=== PATIENT | female | born 1945 | race Caucasian/White ===

== ENCOUNTER 2019-01-17 13:33 | Observation (INO) | payer MEDICARE ==
[2019-01-17] MEDS ORDERED: ASPIRIN 81 MG PO STA (13:48)
--- NOTE | 2019-01-17 14:10 | ED ---
Chest Pain HPI - General Chief Complaint: Chest Pain Stated Complaint: Chest pain Time Seen by Provider: 01/17/19 13:48 Source: patient Mode of arrival: ambulatory Limitations: no limitations - History of Present Illness Initial Comments: 73-year-old female with history of hypothyroidism presenting today for chief complaint of heavy chest sensation occasional left arm pain and occasional mid back pain for the past 2-3 weeks. Patient states that she has had a sensation of heavy chest with shortness of breath accompanied by occasional left arm pain that is sharp as well as a mid back pain. The arm pain and mid back pain is a stabbing sensation. She denies any specific pattern to denies increasing ambulation. Patient states that she did notice just prior to the onset of the symptoms that she had some swelling of the left leg after line dancing. Patient states that she was concerned because of her friends have had a blood clot that she possibly had developed one in her left leg. Patient is a lifetime nonsmoker. Denies diabetes hypertension dyslipidemia. Patient states she had laboratory studies drawn at her primary care provider's office approximately 2 weeks ago. She states she did not mention this complaint at that time. Patient states she feels as though every time she mind and says she has shortness of breath is increased from her baseline. Patient denies dizziness, vomiting ,abdominal pain, nausea, hemoptysis, hx of cancer, recent surgeries/immobilization or fractures. Patient denies history of DVT/PE. Patient states she felt the heavy chest sensation today, but feels "fine" right now. No other complaints or concerns at this time. Upon arrival patient VS within acceptable limits. Patient appears well, no distress. - Related Data Home Medications Medication Instructions Recorded Confirmed Levothyroxine Sodium [Synthroid] 88 mcg PO DAILY 02/19/16 01/17/19 Cholecalciferol (Vitamin D3) 2,000 unit PO DAILY 01/17/19 01/17/19 [Vitamin D3] L.acidoph,Paracasei, B.lactis 1 cap PO DAILY 01/17/19 01/17/19 [Probiotic] Allergies Allergy/AdvReac Type Severity Reaction Status Date / Time No Known Allergies Allergy Verified 01/17/19 16:22 Review of Systems ROS Statement: Those systems with pertinent positive or pertinent negative responses have been documented in the HPI. ROS Other: All systems not noted in ROS Statement are negative. Past Medical History Past Medical History: Thyroid Disorder History of Any Multi-Drug Resistant Organisms: None Reported Past Surgical History: Orthopedic Surgery Past Psychological History: No Psychological Hx Reported Smoking Status: Never smoker Past Alcohol Use History: Occasional Past Drug Use History: None Reported General Exam - General Exam Comments Initial Comments: General: The patient is awake and alert, in no distress, and does not appear acutely ill. Eye: +3 mm pupils are equal, round and reactive to light, extra-ocular movemen ts are intact. No nystagmus. There is normal conjunctiva bilaterally. No signs of icterus. Ears, nose, mouth and throat: There are moist mucous membranes and no oral les ions. Neck: The neck is supple, there is no tenderness or JVD. Cardiovascular: There is a regular rate and rhythm. No murmur, rub or gallop is appreciated. Respiratory: Lungs are clear to auscultation, respirations are non-labored, breath sounds are equal. No wheezes, stridor, rales, or rhonchi. Gastrointestinal: Soft, non-distended, non-tender abdomen without masses or organomegaly noted. There is no rebound or guarding present. Musculoskeletal: Normal ROM, no tenderness. Strength 5/5. Sensation intact. Radial and DP pulses equal bilaterally 2+. Neurological: A&O x 3. CN II-XII intact, There are no obvious motor or sensory deficits. Coordination appears grossly intact. Speech is normal. Skin: Skin is warm and dry and no rashes or lesions are noted. No LE edema. Psychiatric: Cooperative, appropriate mood & affect, normal judgment. Limitations: no limitations Course Vital Signs 01/17/19 01/17/19 01/17/19 13:41 17:38 17:56 Temperature 97.9 F 97.9 F Pulse Rate 64 57 L 57 L Respiratory 18 18 18 Rate Blood Pressure 167/85 126/78 126/78 O2 Sat by Pulse 98 97 97 Oximetry Chest Pain MDM - MDM 73-year-old female presenting for 1 month of chest pressure left arm pain and occasional mid back pain. Patient denies any specific alleviating or aggravating factors. Patient has no history of diabetes hypertension no known coronary artery disease or hyperlipidemia. Patient is a lifelong nonsmoker. Patient states she has noticed increasing shortness of breath and noted some left leg swelling about tooth 3 weeks ago. States has resolved. No noted swelling on examination. Normal peripheral pulse examination. Negative Homans no pain to palpation of the posterior calves. Patient's lungs are clear. No concerning murmur. Patient vital signs stable. Chest x-ray revealed no acute findings. Troponin negative. EKG sinus bradycardia. CTA was obtained given history of leg swelling with SOB/CP. No PE, no noted aneursyms of the aorta. Patient will be admitted given advanced age for cardiology consultation and serial troponins as patient was experiencing chest pressure today. Patient is agreeable with plan. Patient continues to appears well. Patient transferred to floor appearing well. All questions answered to the best of my ability. Dr. Lombardo spoke with admitting provider. He is agreeable with care plan. Disposition Clinical Impression: Chest pressure, Left arm pain, Shortness of breath Disposition: ADMITTED IP TO THIS [facility] Condition: Stable Is patient prescribed a controlled substance at d/c from ED?: No Time of Disposition: 16:37 Decision to Admit Reason: Admit from EC Decision Date: 01/17/19 Decision Time: 16:37
--- NOTE | 2019-01-17 14:52 | XR ---
EXAMINATION TYPE: XR chest 2V DATE OF EXAM: 01/17/2019 COMPARISON: NONE HISTORY: Shortness of breath and chest heaviness TECHNIQUE: Frontal and lateral views of the chest are obtained. FINDINGS: There is no focal air space opacity, pleural effusion, or pneumothorax seen. Pulmonary hyp erinflation of COPD is seen. The cardiac silhouette size is within normal limits. The osseous struc tures are intact. IMPRESSION: No acute cardiopulmonary process.
[2019-01-17 15:16] LABS: Basophils # (A) 0.1 k/uL (0-0.2); Basophils % (A) 1 %; Eosinophils # (A) 0.2 k/uL (0-0.7); Eosinophils % (A) 3 %; HCT 41.7 % (34.0-46.0); HGB 13.7 gm/dL (11.4-16.0); Lymphocytes # (A) 2.3 k/uL (1.0-4.8); Lymphocytes % (A) 39 %; MCH 31.6 pg (25.0-35.0); MCHC 32.9 g/dL (31.0-37.0); MCV 95.9 fL (80.0-100.0); Mean Platelet Volume 8.4; Monocytes # (A) 0.4 k/uL (0-1.0); Monocytes % (A) 7 %; Neutrophils # (A) 2.8 k/uL (1.3-7.7); Neutrophils % (A) 48 %; Platelet Count 177 k/uL (150-450); RBC 4.35 m/uL (3.80-5.40); RDW 14.1 % (11.5-15.5); WBC 5.8 k/uL (3.8-10.6)
[2019-01-17 15:19] LABS: Appearance,Urine Clear (Clear); Bilirubin,Urine Negative (Negative); Blood,Urine Trace (Negative); Color,Urine Yellow; Glucose,Urine (UA) Negative (Negative); Hyaline Casts,Urine 1 /lpf (0-2); Ketones,Urine Negative (Negative); Leukocyte Esterase,Urine Negative (Negative); Mucus,Urine Rare /hpf; Nitrite,Urine Negative (Negative); PH, Urine 5.5 (5.0-8.0); Protein,Urine Negative (Negative); RBC,Urine 2 /hpf (0-5); Specific Gravity,Urine 1.014 (1.001-1.035); Squamous Epithelial Cell,Urine 1 /hpf (0-4); Urobilinogen,Urine <2.0 mg/dL (<2.0)
[2019-01-17 15:27] LABS: ALT 18 U/L (9-52); AST 21 U/L (14-36); African American GFR (CKD) >90 (>60 ml/min/1.73 sqM); Albumin 4.1 g/dL (3.5-5.0); Alkaline Phosphatase 95 U/L (38-126); Anion Gap 9 mmol/L; Blood Urea Nitrogen 14 mg/dL (7-17); Calcium 9.4 mg/dL (8.4-10.2); Carbon Dioxide 24 mmol/L (22-30); Chloride 103 mmol/L (98-107); Glucose 92 mg/dL (74-99); INR 0.9 (<1.2); Magnesium 2.2 mg/dL (1.6-2.3); Partial Thromboplastin Time 24.7 sec (22.0-30.0); Potassium 4.1 mmol/L (3.5-5.1); Prothrombin Time 9.8 sec (9.0-12.0); Sodium 136 mmol/L (137-145); Total Bilirubin 1.1 mg/dL (0.2-1.3); Total Protein 6.9 g/dL (6.3-8.2)
--- NOTE | 2019-01-17 16:26 | CT ---
EXAMINATION TYPE: CT angio chest DATE OF EXAM: 01/17/2019 4:16 PM COMPARISON: Chest x-ray dated 01/27/2019 HISTORY: SOB, chest pain CT DLP: 249.7 mGycm Automated exposure control for dose reduction was used. CONTRAST: CTA scan of the thorax is performed with IV Contrast, patient injected with 70 mL of Isovue 370, pulm onary embolism protocol. . FINDINGS: LUNGS: Scattered areas of scarring/atelectasis in the lung bases and lateral right lower lobe. There is no concerning parenchymal mass or nodule identified. There is no pleural effusion or pneumothora x seen. The tracheobronchial tree is patent. MEDIASTINUM: There is satisfactory enhancement of the pulmonary artery and its branches, there is no CT evidence for pulmonary embolism. There are no greater than 1 cm hilar or mediastinal lymph nodes. No pericardial effusion is seen. OTHER: No additional significant abnormality is seen. IMPRESSION: NO EVIDENCE OF PULMONARY EMBOLISM.
[2019-01-17] MEDS ORDERED: NITROGLYCERIN SL TABS 0.4 MG TAB SUBLINGUAL PRN (16:35)
[2019-01-18 03:20] LABS: Cholesterol 176 mg/dL (<200); HDL Cholesterol 71 mg/dL (40-60); LDL Cholesterol,Calculated 96 mg/dL (0-99); Triglycerides 47 mg/dL (<150)
[2019-01-18] MEDS ORDERED: LEVOTHYROXINE 88 MCG TAB PO SCH (06:30)
[2019-01-18] MEDS ORDERED: ASPIRIN 325 MG TAB PO SCH (09:00)
[2019-01-18] MEDS ORDERED: CHOLECALCIFEROL 1,000 UNIT TAB PO SCH (09:00)
[2019-01-18] MEDS ORDERED: LACTOBACILLUS ACIDOPH & BULGAR 1 EACH PACKET PO SCH (09:00)
[2019-01-18 09:42] VITALS: RESP 14
--- NOTE | 2019-01-18 10:28 | P.CRDCN ---
History of Present Illness History of present illness: This is Yady Flower PA-C dictating a consult on this patient The patient was interviewed and examined by me as well as by Dr. Campbell Case discussed with Dr. Campbell and he agrees with the plan of care IMPRESSION / ASSESSMENT: Atypical chest discomfort, troponins negative, EKG shows no ST or T-wave abnormalities History of hypothyroidism PLAN: 2-D echo and Doppler studies to assess cardiac structure and function If echo is normal she may go home from his cardiac standpoint and follow-up outpatient for further workup within 1-2 weeks Check TSH HPI Patient is a 73-year-old female with a past medical history of hypothyroidism who presented with complaints of chest discomfort and back pain. Patient states it started with leg pain and swelling about a month ago after dancing. This progressed intermittent back pain. She also had chest heaviness which she describes as a "fullness sensation" accompanied with intermittent left arm tightness/discomfort. She has felt tightness in her throat and her minimally as well. She has also been more short of breath and fatigued over the last month. She has been short of breath with activities that would typically make her short of breath such as line dancing. She does note that shortness of breath and chest discomfort gets better when she leans forward and worse when she lays on her back. Denied dizziness, lightheadedness, palpitations or syncope. Her symptoms have gotten progressively worse so she decided to come in for evaluation. Upon admission her blood pressure was 167/85, pulse was 64. EKG showed sinus mechanism with no ST or T-wave abnormalities. Troponins negative 3. Her chest x-ray showed no acute cardiopulmonary process and her chest CT was negative for pulmonary embolism. Patient seen and examined resting in bed. States she is feeling a little better. Still complaining of upper back pain. She denies history of hypertension, diabetes, heart disease She has a lifelong nonsmoker, drinks 2 glasses of wine a day Denies known family history of heart disease ROS: No fevers, positive for chills no cough, phlegm or expectoration, no nausea, vomiting or diarrhea, no hematuria, dysuria, Positive for back pain no strokes or seizures, no skin lesions. EXAMINATION: Temperature 97.8F, pulse 54, respirations 16, blood pressure 130/76, oxygen saturation 98% on room air Patient seen and examined resting in bed, in no acute distress Lungs clear to auscultation bilaterally, no wheezing, rhonchi or crackles appreciated Heart is regular, normal S1-S2, no murmurs appreciated No tenderness to palpation in the anterior chest or back No elevated JVD noted No carotid bruits No lower extremity edema Abdomen soft nontender REVIEW OF LABS, ECG & MEDICAL DATA CBC 5.8, hemoglobin 13.7, platelets 177, potassium 4.1, BUN 14, creatinine 0.74, magnesium 2.2 Troponin negative 3 Total cholesterol 176, triglycerides 47, LDL 96, HDL 71 Chest x-berenice shows no acute cardiopulmonary process Chest CT shows no evidence of pulmonary embolism EKG showed sinus mechanism with no ST or T-wave abnormalities Past Medical History Past Medical History: Thyroid Disorder History of Any Multi-Drug Resistant Organisms: None Reported Past Surgical History: Orthopedic Surgery Additional Past Surgical History / Comment(s): PLATE IN RIGHT FOOT AND RIGHT ANKLE FRACTURE WITH PLATE. Past Psychological History: No Psychological Hx Reported Smoking Status: Never smoker Past Alcohol Use History: Occasional Past Drug Use History: None Reported Medications and Allergies Home Medications Medication Instructions Recorded Confirmed Type Levothyroxine Sodium [Synthroid] 88 mcg PO DAILY 02/19/16 01/17/19 History Cholecalciferol (Vitamin D3) 2,000 unit PO DAILY 01/17/19 01/17/19 History [Vitamin D3] L.acidoph,Paracasei, B.lactis 1 cap PO DAILY 01/17/19 01/17/19 History [Probiotic] Allergies Allergy/AdvReac Type Severity Reaction Status Date / Time No Known Allergies Allergy Verified 01/17/19 16:22 Physical Exam Vitals: Vital Signs Temp Pulse Pulse Resp BP BP Pulse Ox 01/18/19 04:00 54 L 16 01/18/19 03:30 97.8 F 54 L 16 138/76 98 01/17/19 23:59 57 L 15 01/17/19 23:12 97.5 F L 57 L 15 124/69 98 01/17/19 19:52 65 15 01/17/19 18:37 97.8 F 65 15 128/70 96 01/17/19 18:15 98.2 F 54 L 18 138/78 99 01/17/19 17:56 97.9 F 57 L 18 126/78 97 01/17/19 17:38 57 L 18 126/78 97 01/17/19 13:41 97.9 F 64 18 167/85 98 Intake and Output 01/17/19 01/18/19 01/18/19 22:59 06:59 14:59 Other: # Voids 1 Results 01/17/19 14:58 01/17/19 14:58 Cardiac Enzymes 01/17/19 01/17/19 01/17/19 Range/Units 14:58 14:58 20:56 AST 21 (14-36) U/L Troponin I <0.012 <0.012 (0.000-0.034) ng/mL 01/18/19 Range/Units 02:47 AST (14-36) U/L Troponin I <0.012 (0.000-0.034) ng/mL Coagulation 01/17/19 Range/Units 14:58 PT 9.8 (9.0-12.0) sec APTT 24.7 (22.0-30.0) sec Lipids 01/18/19 Range/Units 02:47 Triglycerides 47 (<150) mg/dL Cholesterol 176 (<200) mg/dL HDL Cholesterol 71 H (40-60) mg/dL CBC 01/17/19 Range/Units 14:58 WBC 5.8 (3.8-10.6) k/uL RBC 4.35 (3.80-5.40) m/uL Hgb 13.7 (11.4-16.0) gm/dL Hct 41.7 (34.0-46.0) % Plt Count 177 (150-450) k/uL Comprehensive Metabolic Panel 01/17/19 Range/Units 14:58 Sodium 136 L (137-145) mmol/L Potassium 4.1 (3.5-5.1) mmol/L Chloride 103 (98-107) mmol/L Carbon Dioxide 24 (22-30) mmol/L BUN 14 (7-17) mg/dL Creatinine 0.74 (0.52-1.04) mg/dL Glucose 92 (74-99) mg/dL Calcium 9.4 (8.4-10.2) mg/dL AST 21 (14-36) U/L ALT 18 (9-52) U/L Alkaline Phosphatase 95 (38-126) U/L Total Protein 6.9 (6.3-8.2) g/dL Albumin 4.1 (3.5-5.0) g/dL Current Medications Generic Name Dose Route Start Last Admin Trade Name Freq PRN Reason Stop Dose Admin Aspirin 325 mg 01/18/19 09:00 Aspirin PO DAILY [facility] Cholecalciferol 2,000 unit 01/18/19 09:00 Vitamin D3 (25 Mcg = 1000 Iu) PO DAILY [facility] Lactobacillus Acidoph/Bulgaricus 1 each 01/18/19 09:00 Lactinex PO DAILY [facility] Levothyroxine Sodium 88 mcg 01/18/19 06:30 01/18/19 06:30 Synthroid PO 88 mcg DAILY@0630 [facility] Administration Nitroglycerin 0.4 mg 01/17/19 16:35 Nitrostat SUBLINGUAL Q5M PRN Chest Pain Intake and Output 01/17/19 01/18/19 01/18/19 22:59 06:59 14:59 Other: # Voids 1 01/17/19 14:58 01/17/19 14:58
[2019-01-18 12:27] VITALS: BP 98/58; PULSE 60; TEMP 97.8
--- NOTE | 2019-01-18 18:40 | P.HPIM ---
History of Present Illness H&P Date: 01/18/19 Chief Complaint: Chest pain Mrs. Simon is a 73-year-old female with a past medical history of hypothyroidism coming in with a chief complaint of left sided chest pain that has been going on and off for the past 2-3 weeks. Patient states that she has a sensation of heaviness in the left side of the chest associated with some left arm heaviness and also radiating to the mid back. Patient denies having any weakness of her left upper extremity. Patient denies having any associated diaphoresis with the chest pain. But she was anxious about this chest pain and was having mild difficulty in breathing when she thinks about it. She has been discussing about her symptoms with her friends and they were concerned about a blood clot in her lungs or her left leg as she felt some heaviness in her left leg as well. Patient denies having any recent travel or recent surgeries done. Her primary care physician radha wan she states that she was seen in his office few months back and everything was normal. Patient denies having any history of smoking. No family history of cardiac issues. Patient denies having any fevers chills or rigors. No cough or sputum. No abdominal pain nausea vomiting or diarrhea. No dysuria or hematuria. No headache or neck stiffness. No facial droop or slurring of speech. No weakness of her extremities. No gait changes. In the emergency patient had a CT of the chest that was negative for PE. Chest x-ray was done with was negative for any cardiopulmonary process. EKG within normal limits. Troponins 3 have been within normal limits. UA within normal limits. She was evaluated by stock clerk self service store this morning, she had an echo done that was reported to be within normal limits. The final report of the echo is still pending, but preliminary report by Dr. Bustamante within normal limits. So the patient has been cleared by cardiology to be discharged home in a stable condition. Review of Systems REVIEW OF SYSTEMS: PSYCH: No anxiety or depression NEURO:No c/o weakness of the extremties, No facial droop, No speech abnormalities. VASCULAR: Peripheral nervous system within the normal limits no edema HEMATOLOGIC: No history of easy bleeding and bruising . No recent infections . RESPIRATORY: No cough, No SOB, No chest discomfort. IMMUNE: No infections INTEGUMENT: no rashes OPHTHALMOLOGIC: No blurry vision and no eye discharge : No dysuria or hematuria TRANSIT PLANNER: No bleeding PV CARDIAC: No chest pain , shortness of breath , paroxysmal nocturnal dyspnea MUSCULOSKELETAL : No Aches or pains in the joints or muscles. GI: No abdominal pain, Nausea or vomiting. No constipation or diarrhea. All 13 review of systems are negative except for the ones mentioned above Past Medical History Past Medical History: Thyroid Disorder History of Any Multi-Drug Resistant Organisms: None Reported Past Surgical History: Orthopedic Surgery Additional Past Surgical History / Comment(s): PLATE IN RIGHT FOOT AND RIGHT ANKLE FRACTURE WITH PLATE. Past Psychological History: No Psychological Hx Reported Smoking Status: Never smoker Past Alcohol Use History: Occasional Past Drug Use History: None Reported Medications and Allergies Home Medications Medication Instructions Recorded Confirmed Type Levothyroxine Sodium [Synthroid] 88 mcg PO DAILY 02/19/16 01/17/19 History Cholecalciferol (Vitamin D3) 2,000 unit PO DAILY 01/17/19 01/17/19 History [Vitamin D3] L.acidoph,Paracasei, B.lactis 1 cap PO DAILY 01/17/19 01/17/19 History [Probiotic] Allergies Allergy/AdvReac Type Severity Reaction Status Date / Time No Known Allergies Allergy Verified 01/17/19 16:22 Physical Exam Vitals: Vital Signs Temp Pulse Resp BP Pulse Ox 01/18/19 17:05 98 01/18/19 12:26 97.8 F 60 14 98/58 01/18/19 12:00 14 01/18/19 09:42 97.7 F 95 14 170/93 01/18/19 04:00 54 L 16 01/18/19 03:30 97.8 F 54 L 16 138/76 98 01/17/19 23:59 57 L 15 01/17/19 23:12 97.5 F L 57 L 15 124/69 98 01/17/19 19:52 65 15 01/17/19 18:37 97.8 F 65 15 128/70 96 Intake and Output 01/18/19 01/18/19 01/18/19 06:59 14:59 22:59 Other: Voiding Method Toilet # Voids 1 1 GEN. APPEARANCE: alert, in no apparent distress HEENT: No pallor no icterus. Mucous membranes moist. No thyromegaly. No lymphadenopathy. RESPIRATORY EXAM: normal lung sounds bilaterally. Absent: respiratory distress, wheezes, rales, rhonchi, stridor CARDIOVASCULAR EXAM: regular rate, normal rhythm, normal heart sounds. Absent: systolic murmur, diastolic murmur, rubs, gallop, clicks GI/ABDOMINAL EXAM: soft, normal bowel sounds. Absent: distended, tenderness, guarding, rebound, rigid EXTREMITIES EXAM: No pedal edema NEUROLOGICAL EXAM: alert, oriented X3, no focal deficits PSYCHIATRIC EXAM: normal affect, normal mood SKIN EXAM: warm, dry, intact, normal color. Absent: rash Results CBC & Chem 7: 01/17/19 14:58 01/17/19 14:58 Labs: Abnormal Lab Results - Last 24 Hours (Table) 01/18/19 Range/Units 02:47 HDL Cholesterol 71 H (40-60) mg/dL Thrombosis Risk Factor Assmnt - Choose All That Apply Each Risk Factor Represents 2 Points: Age 61-74 years Thrombosis Risk Factor Assessment Total Risk Factor Score: 2 Thrombosis Risk Factor Assessment Level: Low Risk Assessment and Plan Assessment: ASSESSMENT Atypical chest pain Hypothyroidism PLAN: Patient is admitted for ACS rule out, serial troponins and EKGs within normal limits. Patient had an echo done that was within normal limits. She has been cleared by cardiology to be discharged home in a stable condition. She is advised to follow with Dr. Mckinney her PCP within 3-5 days.
--- NOTE | 2019-01-18 18:41 | P.DS ---
Providers Date of admission: 01/17/19 17:37 Expected date of discharge: 01/18/19 Attending physician: Guido Mckinney Consults: 01/17/19 16:35 Consult Physician Routine Consulting Provider: Sterling Campbell Consult Reason/Comments: chest pressure Do you want consulting provider notified?: Yes Primary care physician: Guido Mckinney [facility] Course: Chief Complaint: Chest pain Mrs. Simon is a 73-year-old female with a past medical history of hypothyroidism coming in with a chief complaint of left sided chest pain that has been going on and off for the past 2-3 weeks. Patient states that she has a sensation of heaviness in the left side of the chest associated with some left arm heaviness and also radiating to the mid back. Patient denies having any weakness of her left upper extremity. Patient denies having any associated diaphoresis with the chest pain. But she was anxious about this chest pain and was having mild difficulty in breathing when she thinks about it. She has been discussing about her symptoms with her friends and they were concerned about a blood clot in her lungs or her left leg as she felt some heaviness in her left leg as well. Patient denies having any recent travel or recent surgeries done. Her primary care physician radha wan she states that she was seen in his office few months back and everything was normal. Patient denies having any history of smoking. No family history of cardiac issues. Patient denies having any fevers chills or rigors. No cough or sputum. No abdominal pain nausea vomiting or diarrhea. No dysuria or hematuria. No headache or neck stiffness. No facial droop or slurring of speech. No weakness of her extremities. No gait changes. In the emergency patient had a CT of the chest that was negative for PE. Chest x-ray was done with was negative for any cardiopulmonary process. EKG within normal limits. Troponins 3 have been within normal limits. UA within normal limits. She was evaluated by automatic corn grinder operator this morning, she had an echo done that was reported to be within normal limits. The final report of the echo is still pending, but preliminary report by Dr. Bustamante within normal limits. So the patient has been cleared by cardiology to be discharged home in a stable condition. DISCHARGE DIAGNOSIS Atypical chest pain Hypothyroidism PLAN: Patient is admitted for ACS rule out, serial troponins and EKGs within normal limits. Patient had an echo done that was within normal limits. She has been cleared by cardiology to be discharged home in a stable condition. She is advised to follow with Dr. Mckinney her PCP within 3-5 days. Patient Condition at Discharge: Stable Plan - Discharge Summary Discharge Rx Participant: No New Discharge Prescriptions: Continue Levothyroxine Sodium [Synthroid] 88 mcg PO DAILY L.acidoph,Paracasei, B.lactis [Probiotic] 1 cap PO DAILY Cholecalciferol (Vitamin D3) [Vitamin D3] 2,000 unit PO DAILY Discharge Medication List Levothyroxine Sodium [Synthroid] 88 mcg PO DAILY 02/19/16 [History] Cholecalciferol (Vitamin D3) [Vitamin D3] 2,000 unit PO DAILY 01/17/19 [History] L.acidoph,Paracasei, B.lactis [Probiotic] 1 cap PO DAILY 01/17/19 [History] Follow up Appointment(s)/Referral(s): Chato Campbell MD [STAFF PHYSICIAN] - 1 Week (follow up with Dr. Campbell/Yady Flower/Argelia Gonsalez in 1-2 weeks) Guido Mckinney DO [Primary Care Provider] - 1-2 days
--- NOTE | 2019-01-19 15:01 | ECHOF ---
Referral Reason:sob MEASUREMENTS -------- HEIGHT: 170.2 cm WEIGHT: 72.6 kg BP: IVSd: 1.0 cm (0.6 - 1.1) LVIDd: 3.7 cm (3.9 - 5.3) LVPWd: 1.2 cm (0.6 - 1.1) IVSs: 1.7 cm LVIDs: 1.7 cm LVPWs: 1.8 cm RVIDd: 2.5 cm (< 3.3) Ao Diam: 2.8 cm (2.0 - 3.7) LA Diam: 2.4 cm (2.7 - 3.8) AV Cusp: 1.7 cm (1.5 - 2.6) EPSS: 0.4 cm MV E Donnie: 0.64 m/s MV DecT: 194 ms MV A Donnie: 0.66 m/s MV E/A Ratio: 0.98 AR PHT: 664 ms RAP: 5.00 mmHg RVSP: 8.79 mmHg MV EF SLOPE: 54.16 mm/s (70 - 150) MV EXCURSION: 13.19 mm (> 18.000) FINDINGS -------- Sinus rhythm. This was a technically difficult study with suboptimal views. The left ventricular size is normal. There is borderline concentric left ventricular hypertrophy. Overall left ventricular systolic function is normal with, an EF between 55 - 60 %. The right ventricle is normal in size. The left atrial size is normal. The right atrial size is normal. 5.0mg of Lumason was utilized for enhancement of images Interatrial and interventricular septum intact. The aortic valve is trileaflet and appears structurally normal. Trace amount of aortic regurgitatio n. The mitral valve is normal. There is trace mitral regurgitation. Trace tricuspid regurgitation present. Right ventricular systolic pressure is normal at < 35 mmHg. There is no pulmonic regurgitation present. The aortic root size is normal. IVC Not well visulized. There is no pericardial effusion. CONCLUSIONS -------- 1. Sinus rhythm. 2. This was a technically difficult study with suboptimal views. 3. The left ventricular size is normal. 4. There is borderline concentric left ventricular hypertrophy. 5. Overall left ventricular systolic function is normal with, an EF between 55 - 60 %. 6. The right ventricle is normal in size. 7. The left atrial size is normal. 8. The right atrial size is normal. 9. 5.0mg of Lumason was utilized for enhancement of images 10. Interatrial and interventricular septum intact. 11. The aortic valve is trileaflet and appears structurally normal. 12. Trace amount of aortic regurgitation. 13. The mitral valve is normal. 14. There is trace mitral regurgitation. 15. Trace tricuspid regurgitation present. 16. Right ventricular systolic pressure is normal at < 35 mmHg. 17. There is no pulmonic regurgitation present. 18. The aortic root size is normal. 19. IVC Not well visulized. 20. There is no pericardial effusion. [employer]: Elham Cho RDCS
== END 2019-01-18 18:45 | disposition home or self-care (01) ==
LOC: EC 13:33 → 1SOBS 17:37
PROVIDERS: ADMIT Family Medicine; ATTEND Family Medicine
DX: R07.89 Other chest pain (principal); E03.9 Hypothyroidism, unspecified; M54.9 Dorsalgia, unspecified; R06.02 Shortness of breath; R53.83 Other fatigue; Z79.890 Hormone replacement therapy; Z79.899 Other long term (current) drug therapy
CPT/HCPCS: 99285; 36415; 93005; 80061; 80053; 84443; 83735; 84484 ×2; 85025; 85610; 85730; 81001; 71046; 71275; G0378 ×2; C8929; Q9950; Q9967; 93306

== ENCOUNTER → 2020-06-07 | Outpatient (CLI) | payer MEDICARE ==
--- NOTE | 2020-06-08 03:17 | CT ---
EXAMINATION TYPE: CT abdomen pelvis wo con DATE OF EXAM: 06/07/2020 COMPARISON: 12/09/2011 HISTORY: abdominal pain, hx of diverticulitis CT DLP: 446.5 mGycm Automated exposure control for dose reduction was used. Images were obtained from the diaphragm to the floor the pelvis with oral contrast only. Lung bases are clear of consolidation. There is no pleural effusion. Heart size is normal. There is n o pericardial effusion. Liver spleen stomach pancreas gallbladder appear normal. Bile ducts are not dilated. Stomach appears intact. There is no adrenal mass. Kidneys have normal size. There is no hydronephrosis. Ureters are not dilat ed. There is no retroperitoneal adenopathy. Bladder distends smoothly. There is no inguinal hernia. T he uterus is anteverted. There is no free fluid in the pelvis. There are numerous diverticula in the sigmoid colon. I see no sign of diverticulitis. There is contra st-filled posterior appendix appears normal. The oral contrast extends down to the rectum. There is n o evidence of a bowel obstruction. There is no mesenteric edema. There is no ascites or free air. Lumbar vertebra have fairly normal alignment. There is no compression fracture. There is multilevel d egenerative disc space narrowing. The bony pelvis is intact. Hip joints are intact. Sacrum is intact. IMPRESSION: Sigmoid diverticulosis without diverticulitis. Normal appendix. Diverticulosis is significantly worse than old exam.
== END | disposition home or self-care (01) ==
LOC: RADCTMAIN 16:57
PROVIDERS: ATTEND Family Medicine
DX: K57.30 Diverticulosis of large intestine without perforation or abscess without bleeding (principal)
CPT/HCPCS: 74176